=== PATIENT | female | born 1975 | race Caucasian/White ===

== ENCOUNTER 2018-10-23 06:42 | Emergency (ER) | payer MEDICAID ==
[~2018-10-23] VITALS: Ht 160 cm; Wt 121.0 kg
[2018-10-23 08:15] VITALS: BP 139/68
[2018-10-23] MEDS ORDERED: KETOROLAC 30MG/ML VIAL IM ONE (08:15)
== END 2018-10-23 08:32 | disposition home or self-care (01) ==
LOC: ER 06:42
DX: K02.9 Dental caries, unspecified (principal); K13.79 Other lesions of oral mucosa; F17.200 Nicotine dependence, unspecified, uncomplicated; Z98.890 Other specified postprocedural states
CPT/HCPCS: 81025; 96372; 99283; J1885

== ENCOUNTER 2023-03-03 16:18 | Emergency (ER) | payer MEDICAID ==
[~2023-03-03] VITALS: Ht 165.1 cm; Wt 137.0 kg
[2023-03-03 16:22] VITALS: BP 170/109; PULSE 103; RESP 16; TEMP 98.3; O2SAT 100
[2023-03-03 17:17] LABS: BASOPHILS % 1.1 % (0.0-2.0); EOSINOPHILS % 5.6 % (0.0-5.0); HEMATOCRIT. 34.4 % (36.0-48.0); HEMOGLOBIN. 11.5 g/dL (12.0-16.0); LYMPHOCYTES % 32.4 % (20.0-50.0); MEAN CORPUSCULAR HEMOGLOBIN 30.3 pg (28.0-32.0); MEAN CORPUSCULAR HGB CONC 33.6 g/dL (31.0-37.0); MEAN CORPUSCULAR VOLUME 90.3 fL (81.0-99.0); MONOCYTES % 10.8 % (2.0-8.0); NEUTROPHILS % 50.1 % (40.0-76.0); RED BLOOD CELL COUNT 3.81 mill/uL (4.2-5.4); RED CELL DISTRIBUTION WIDTH 13.3 % (11.6-14.6); WHITE BLOOD COUNT 10.8 x1000/uL (4.5-11.0)
[2023-03-03 17:19] LABS: DIFFERENTIAL COMMENT 1
[2023-03-03 17:30] LABS: ALANINE AMINOTRANSFERASE 25 IU/L (10-49); ALBUMIN 3.7 g/dL (3.2-4.8); ASPARTATE AMINOTRANSFERASE 20 IU/L (<34); BILIRUBIN TOTAL 0.2 mg/dL (0.1-1.0); CALCIUM 9.1 mg/dL (8.7-10.4); CARBON DIOXIDE 22 mEq/L (21-32); CHLORIDE 110 mEq/L (98-107); CREATININE 1.1 mg/dL (0.6-1.0); GLUCOSE 104 mg/dL (70-105); PROTEIN TOTAL 6.7 g/dL (6.0-8.3); SODIUM 142 mEq/L (136-145); TROPONIN I HIGH SENSITIVITY 5 ng/L (3.0-34); UREA NITROGEN BLOOD 21 mg/dL (9-23)
[2023-03-03] MEDS ORDERED: NITROGLYCERIN 0.4MG TABLET SL SL NR (17:30)
[2023-03-03 17:36] LABS: PLATELET 409 x1000/uL (130-400)
[2023-03-03 17:40] LABS: BG BASE EXCESS -1.3 mmol/L (-2.0-2.0); BG CARBOXYHEMOGLOBIN 0.3 % (0.5-1.5); BG DEOXYHEMOGLOBIN 1.2 % (0.0-5.0); BG FRACTION INSPIRED OXYGEN 36; BG HCO3 ACT 18.4 mmol/L (22.0-26.0); BG METHEMOGLOBIN 0.1 % (0.0-1.5); BG OXYGEN SATURATION 98.8 % (92.0-98.5); BG OXYHEMOGLOBIN 98.4 % (94.0-97.0); BG PCO2 19.7 mmHg (35.0-45.0); BG PH 7.589 (7.350-7.450); BG SAMPLE SITE RIGHT BRACHIAL; BG TOTAL HEMOGLOBIN 12.3 g/dL (12.0-18.0); BG VENT MODE NASAL CANNULA
[2023-03-03 18:01] LABS: PROTHROMBIN TIME 10.8 sec (9.6-11.0)
[2023-03-03 19:01] LABS: CLARITY URINE CLOUDY (CLEAR); COLOR URINE YELLOW (YELLOW); GLUCOSE URINE NEGATIVE (NEGATIVE); KETONES URINE TRACE (NEGATIVE); LEUKOCYTE ESTERASE URINE NEGATIVE (NEGATIVE); NITRITE URINE NEGATIVE (NEGATIVE); OCCULT BLOOD URINE NEGATIVE (NEGATIVE); PROTEIN URINE 1+ (NEGATIVE)
[2023-03-03 19:15] LABS: BACTERIA URINE 2+; RBC URINE 0-2 /hpf (0-2); SQUAMOUS EPITHELIAL CELL URINE 2+ /lpf (RARE/1+); WBC URINE 0-2 /hpf (0-2)
[2023-03-03] MEDS ORDERED: HYDRALAZINE 20MG/ML VIAL IV ONE (19:45)
== END 2023-03-03 20:28 | disposition home or self-care (01) ==
LOC: ER 16:18
DX: R07.89 Other chest pain (principal); J44.9 Chronic obstructive pulmonary disease, unspecified; I10 Essential (primary) hypertension; F15.10 Other stimulant abuse, uncomplicated; F17.200 Nicotine dependence, unspecified, uncomplicated
CPT/HCPCS: 36415; 36600; 71045; 80053; 81003; 82375; 82805; 82962; 83735; 83880; 84484; 85025; 93005; 99285